=== PATIENT | male | born 1980 | race Caucasian/White ===

== ENCOUNTER 2017-04-19 21:55 | Emergency (ER) | payer MEDICARE ==
[~2017-04-19] VITALS: Ht 177.8 cm; Wt 99.6 kg
[2017-04-19 21:59] VITALS: BP 208/95; PULSE 76; RESP 16; TEMP 98; O2SAT 95
[2017-04-19] MEDS ORDERED: MYCO500T PO (22:14)
[2017-04-19] MEDS ORDERED: CLON0.2T PO (22:14)
[2017-04-19] MEDS ORDERED: LABE300T PO (22:14)
[2017-04-19] MEDS ORDERED: PRAM0.5T PO (22:14)
[2017-04-19] MEDS ORDERED: TACR1CAP PO (22:14)
[2017-04-19] MEDS ORDERED: INSU10IN SQ (22:14)
[2017-04-19] MEDS ORDERED: AMLO10TA2 PO (22:14)
[2017-04-19] MEDS ORDERED: CALC0.5C PO ×3 (22:14)
[2017-04-19] MEDS ORDERED: CLON0.3D T-DERMAL (22:14)
[2017-04-19] MEDS ORDERED: LANTINJ SQ (22:14)
[2017-04-19] MEDS ORDERED: PRED5TAB PO (22:14)
[2017-04-19] MEDS ORDERED: PROPARACAINE HCL 0.5% OPHT SOLN 15 ML BTL LEFT EYE ONE (22:15)
[2017-04-19] MEDS ORDERED: FLUORESCEIN SOD 1 MG STRIP LEFT EYE ONE (22:15)
[2017-04-19] MEDS ORDERED: VENL50TA PO (22:16)
[2017-04-19] MEDS ORDERED: HYDR-3799 PO (22:16)
[2017-04-19] MEDS ORDERED: FURO40TA PO (22:16)
[2017-04-19] MEDS ORDERED: ERYTOIN10 LEFT EYE (22:37)
--- NOTE | 2017-04-19 22:37 | PD ---
HPI Chief Complaint: Eye Problems/Injury Time Seen by Provider: 22:07 Travel History International Travel<30 days: No Contact w/Intl Traveler<30days: No Traveled to known affect area: No History of Present Illness HPI Patient is a 36-year-old male who comes in complaining of pain to his left eye. He says it started last night was watching TV. He says he feels like something is in his eye. He describes it as a scratching sensation. He says there is no change in his vision, but it feels better to keep his eyes closed. He denies fever or chills. His blood pressure is high, but he has not taken his blood pressure medication yet tonight. He denies any headache, or any other symptoms. PFSH Past Medical History Diabetes: Yes Patient Takes Glucophage: No Diminished Hearing: No Hypertension: Yes Immunizations Current: Yes Renal Failure: Yes (KIDNEY/PANCREAS TSPLT) Tetanus Vaccination: > 5 Years Influenza Vaccination: Yes Past Surgical History Cholecystectomy: Yes Genitourinary Surgery: Yes (KIDNEY/PANCREAS TRASNPLANT) Oral Surgery: Yes (WISDOM TEETH REMOVED) Other Surgery: Yes (L UPPER ARM FISTULA) Social History Alcohol Use: No Tobacco Use: No Substance Use: No Allergies-Medications (Allergen,Severity, Reaction): Coded Allergies: No Known Allergies (Unverified , 04/19/17) Reported Meds & Prescriptions Reported Meds & Active Scripts Active Reported Effexor (Venlafaxine HCl) 50 Mg Tab 50 Mg PO DAILY Hydralazine HCl 25 Mg Tablet 25 Mg PO TID Furosemide 40 Mg Tab 40 Mg PO DAILY Calcitriol 0.5 Mcg Cap 1 Mcg PO DAILY,,, Calcitriol 0.5 Mcg Cap 0.5 Mcg PO M,W,F Clonidine 168 HR Patch (Clonidine HCl) 0.3 Mg/24 Hr Patch 1 Patch T-DERMAL Q7D Clonidine (Clonidine HCl) 0.2 Mg Tab 0.2 Mg PO BID Humalog Kwikpen Pen Inj (Insulin Lispro (Human) Inj) 600 Unit/3 Ml Pen 6 Units SQ ACHS Tacrolimus 1 Mg Cap 3 Mg PO Q12H Mycophenolate (Mycophenolate Mofetil) 500 Mg Tab 500 Mg PO BID Lantus Solostar Pen Inj (Insulin Glargine) 300 Unit/3 Ml Pen 40 Units SQ HS Labetalol (Labetalol HCl) 300 Mg Tab 800 Mg PO TID Prednisone 5 Mg Tab 5 Mg PO DAILY Amlodipine (Amlodipine Besylate) 10 Mg Tab 10 Mg PO DAILY Pramipexole (Pramipexole Dihydrochloride) 0.5 Mg Tab 0.5 Mg PO HS Review of Systems General / Constitutional: No: Fever, Chills Eyes: Positive: Redness, Pain, No: Blurred Vision, Drainage HENT: No: Headaches, Lightheadedness Cardiovascular: No: Chest Pain or Discomfort Respiratory: No: Shortness of Breath Gastrointestinal: No: Nausea, Vomiting Musculoskeletal: No: Myalgias, Edema Skin: No Rash, No Change in Pigmentation Neurologic: No: Weakness, Dizziness Physical Exam Narrative GENERAL: Awake and alert, in no acute distress. SKIN: Focused skin assessment warm/dry. HEAD: Atraumatic. Normocephalic. EYES: Pupils equal and round and reactive. No scleral icterus. Conjunctival injection on the left. Extraocular movements intact. ENT: Mucous membranes pink and moist. NECK: Trachea midline. No JVD. CARDIOVASCULAR: Regular rate and rhythm. No murmur appreciated. RESPIRATORY: No accessory muscle use. Clear to auscultation. Breath sounds equal bilaterally. MUSCULOSKELETAL: No obvious deformities. No clubbing. No cyanosis. No edema. NEUROLOGICAL: Awake and alert. No obvious cranial nerve deficits. Motor grossly within normal limits. Normal speech. Data Data Last Documented VS Vital Signs Date Time Temp Pulse Resp B/P (MAP) Pulse Ox O2 Delivery O2 Flow Rate FiO2 04/19/17 21:59 98.0 76 16 208/95 (132) 95 Orders Orders Fluorescein Strip (Pyhbq-Z-Oklsrv A.T.) (04/19/17 22:15) Proparacaine 0.5% Opth Soln (Alcaine 0.5 (04/19/17 22:15) MDM Medical Decision Making Medical Screen Exam Complete: Yes Emergency Medical Condition: Yes Differential Diagnosis Corneal abrasion versus corneal ulceration versus conjunctivitis versus preseptal cellulitis Narrative Course Patient is a 36-year-old male comes in complaining of pain to his left eye. Exam shows redness of the eye. Fluorescein staining performed shows an abrasion to the lower part of the cornea. Patient will be discharged with a prescription for erythromycin ointment. He is advised follow-up with ophthalmology. Advised to return to the ED as needed for any worsening symptoms. Diagnosis Primary Impression: Corneal abrasion Qualified Codes: S05.02XA - Injury of conjunctiva and corneal abrasion without foreign body, left eye, initial encounter Patient Instructions: Corneal Abrasion (ED), General Instructions Additional Instructions: Use the erythromycin ointment as directed. Follow-up with ophthalmology. Return to the ED as needed for any worsening symptoms. Scripts Erythromycin Opth Oint (Erythromycin Opth Oint) 5 Mg/Gm Oint 1 APPLIC LEFT EYE QID for Infection for 10 Days, #1 TUBE 0 Refills Prov: Richa Cline MD 04/19/17 Disposition: 01 DISCHARGE HOME Condition: Stable Richa Cline MD Apr 19, 2017 22:37
== END 2017-04-19 22:55 | disposition home or self-care (01) ==
LOC: PHED 21:55
DX: S05.02XA Injury of conjunctiva and corneal abrasion without foreign body, left eye, initial encounter (principal); E11.9 Type 2 diabetes mellitus without complications; I12.9 Hypertensive chronic kidney disease with stage 1 through stage 4 chronic kidney disease, or unspecified chronic kidney disease; N18.9 Chronic kidney disease, unspecified; X58.XXXA Exposure to other specified factors, initial encounter; Z79.4 Long term (current) use of insulin; Z79.899 Other long term (current) drug therapy
CPT/HCPCS: 99283